=== PATIENT | male | born 1975 | race African-American/Black ===

== ENCOUNTER 2024-11-24 01:45 | Emergency (ER) | payer OTHER ==
[~2024-11-24] VITALS: Ht 175.3 cm; Wt 111.1 kg
[2024-11-24 01:54] VITALS: TEMP 98
[2024-11-24] MEDS: ONDANSETRON HCL 4 MG/2 ML VIAL IVP ONE (02:08)
[2024-11-24 02:14] LABS: CALCIUM, TOTAL 9.8 mg/dL (8.8-10.5); CREATININE 1.30 mg/dL (0.60-1.30); GLOMERULAR FILTR. RATE CALC 59 mL/min (>60); GLUCOSE,RANDOM 186 mg/dL (70-110); SODIUM SERUM 142 mmol/L (136-145); UREA NITROGEN, BLOOD 15 mg/dL (7-18)
[2024-11-24 02:17] LABS: PLATELET COUNT (AUTO) 388 K/uL (150-450); RED BLOOD CELL COUNT(AUTO) 4.95 MIL/uL (4.50-5.90); RED CELL DISTRIBUTION WIDTH 13.1 % (11.5-14.5); WHITE BLOOD COUNT (AUTO) 8.5 K/uL (4.5-11.0)
[2024-11-24 02:20] LABS: ASPARTATE AMINOTRANSFERASE 31 U/L (15-37); CREATINE KINASE, TOTAL ONLY 257 U/L (39-308); TOTAL PROTEIN, SERUM 7.7 g/dL (6.4-8.2)
[2024-11-24 02:28] LABS: TROPONIN I-HIGH SENSITIVITY 8 ng/L (<76)
[2024-11-24 02:30] LABS: ALCOHOL, BLOOD (SERUM) < 3 mg/dL (0-10)
[2024-11-24] MEDS: SODIUM CHLORIDE 0.9% 1,000 ML IV ONE (04:23)
[2024-11-24 04:49] LABS: APPEARANCE,URINE CLEAR (CLEAR); GLUCOSE, URINE (UA) NEGATIVE (NEGATIVE); LEUKOCYTE ESTERASE ,URINE NEGATIVE (NEGATIVE); NITRATE,URINE NEGATIVE (NEGATIVE); OCCULT BLOOD,URINE TRACE (NEGATIVE); PH,URINE DRUG SCREEN 6.5 (5.0-8.0); SPECIFIC GRAVITIY, URINE 1.017 (1.003-1.030)
[2024-11-24 04:54] LABS: ALCOHOL, URINE DRUG SCREEN NEGATIVE (NEGATIVE); AMPHET/METH SCREEN,URINE NEGATIVE (NEGATIVE); BARBITURATE SCREEN, URINE NEGATIVE (NEGATIVE); CANNABINOID SCREEN,URINE POSITIVE (NEGATIVE); COCAINE SCREEN,URINE NEGATIVE (NEGATIVE); METHADONE SCREEN, URINE NEGATIVE (NEGATIVE)
[2024-11-24 05:20] VITALS: BP 178/66; PULSE 109; RESP 14; O2SAT 99
[2024-11-24 05:42] LABS: SQUAMOUS EPITHELIAL CELL,UR Few /LPF (None Seen)
== END 2024-11-24 05:30 | disposition home or self-care (01) ==
LOC: EMS 01:56
DX: K85.90 Acute pancreatitis without necrosis or infection, unspecified (principal); E11.9 Type 2 diabetes mellitus without complications; Z88.8 Allergy status to other drugs, medicaments and biological substances
CPT/HCPCS: 99285; 96374; 71045; 96361; 96375; 80048; 80076; 81001; 82550; 82962; 83690; 83880; 84484; 85025; 85610; 85730; 36415; 93005; 96376; 80307; G0480; J1171; J2405; J7030